=== PATIENT | female | born 1995 | race Native Hawaiian/Other Pacific Islander ===

== ENCOUNTER 2017-06-10 23:16 | Emergency (ER) | payer OTHER ==
[~2017-06-10] VITALS: Ht 149.9 cm; Wt 76.2 kg
== END 2017-06-11 01:13 | disposition home or self-care (01) ==
LOC: ED 23:16
DX: M79.671 Pain in right foot (principal); S91.331A Puncture wound without foreign body, right foot, initial encounter; W45.0XXA Nail entering through skin, initial encounter; Y92.098 Other place in other non-institutional residence as the place of occurrence of the external cause
CPT/HCPCS: 90471; 90715; 99283

== ENCOUNTER 2017-12-28 11:39 | Emergency (ER) | payer OTHER ==
[~2017-12-28] VITALS: Ht 149.9 cm; Wt 77.1 kg
[2017-12-28 11:56] VITALS: TEMP 97.7
[2017-12-28 12:34] LABS: PLATELET COUNT 507 K/uL (152-353)
[2017-12-28 12:42] LABS: POTASSIUM 4.6 mmol/L (3.6-5.2)
[2017-12-28 15:17] VITALS: BP 117/72
== END 2017-12-28 15:15 | disposition home or self-care (01) ==
LOC: ED 11:39
DX: K80.20 Calculus of gallbladder without cholecystitis without obstruction (principal)
CPT/HCPCS: 36415; 80053; 81000; 85027; 96374; 99284; J2405

== ENCOUNTER 2017-12-31 23:11 | Emergency (ER) | payer OTHER ==
[~2017-12-31] VITALS: Ht 149.9 cm; Wt 77.1 kg
[2017-12-31] MEDS ORDERED: KETO10TA34 PO (23:21)
[2018-01-01 00:40] VITALS: BP 134/80; TEMP 98
== END 2018-01-01 00:40 | disposition home or self-care (01) ==
LOC: ED 23:11
DX: K80.20 Calculus of gallbladder without cholecystitis without obstruction (principal)
CPT/HCPCS: 99282

== ENCOUNTER 2018-04-09 21:37 | Emergency (ER) | payer OTHER ==
[~2018-04-09] VITALS: Ht 149.9 cm; Wt 77.1 kg
[~2018-04-09 21:37] MED LIST: KETO10TA34 PO
[2018-04-09 23:09] VITALS: BP 133/80; TEMP 98.6
== END 2018-04-09 23:10 | disposition home or self-care (01) ==
LOC: ED 21:37
DX: M25.552 Pain in left hip (principal); W07.XXXA Fall from chair, initial encounter; Y92.89 Other specified places as the place of occurrence of the external cause
CPT/HCPCS: 99283

== ENCOUNTER 2018-09-05 13:09 | Outpatient (CLI) | payer OTHER | END 2018-09-05 20:14 | disposition home or self-care (01) | LOC: CT 13:09 | DX: R20.2 Paresthesia of skin (principal) ==

== ENCOUNTER 2018-10-11 20:36 | Emergency (ER) | payer OTHER ==
[~2018-10-11] VITALS: Ht 149.9 cm; Wt 81.6 kg
[2018-10-11 23:06] VITALS: BP 122/68; TEMP 98.9
== END 2018-10-11 23:07 | disposition home or self-care (01) ==
LOC: ED 20:36
DX: S43.491A Other sprain of right shoulder joint, initial encounter (principal); X50.0XXA Overexertion from strenuous movement or load, initial encounter; Y92.89 Other specified places as the place of occurrence of the external cause
CPT/HCPCS: 96372; 99282; 99283; J1885

== ENCOUNTER 2018-12-05 11:31 | Outpatient (CLI) | payer OTHER ==
[2018-12-05 12:28] LABS: PLATELET COUNT 452 K/uL (152-353)
== END 2018-12-05 19:39 | disposition home or self-care (01) ==
LOC: LABW 11:31
PROVIDERS: Internal Medicine Hematology & Oncology
DX: D72.829 Elevated white blood cell count, unspecified (principal)
CPT/HCPCS: 36415; 80074; 81206; 81207; 81270; 83615; 85027

== ENCOUNTER 2019-12-07 11:04 | Outpatient (CLI) | payer OTHER ==
[2019-12-07 11:34] LABS: PLATELET COUNT 417 K/uL (152-353)
== END 2019-12-07 19:27 | disposition home or self-care (01) ==
LOC: LABW 11:04
PROVIDERS: Physician Assistant Medical
DX: Z00.00 Encounter for general adult medical examination without abnormal findings (principal)
CPT/HCPCS: 36415; 80053; 80061; 84443; 85027

== ENCOUNTER 2020-08-06 15:49 | Emergency (ER) | payer OTHER ==
[~2020-08-06] VITALS: Ht 149.9 cm; Wt 85.3 kg
[2020-08-06 16:00] VITALS: TEMP 99.1
[2020-08-06 18:20] VITALS: BP 121/68
== END 2020-08-06 18:20 | disposition home or self-care (01) ==
LOC: ED 15:49
DX: S40.012A Contusion of left shoulder, initial encounter (principal); S46.812A Strain of other muscles, fascia and tendons at shoulder and upper arm level, left arm, initial encounter; V59.40XA Driver of pick-up truck or van injured in collision with unspecified motor vehicles in traffic accident, initial encounter; Y92.481 Parking lot as the place of occurrence of the external cause
CPT/HCPCS: 99283

== ENCOUNTER 2020-10-07 20:56 | Outpatient (CLI) | payer OTHER ==
[2020-10-07 21:16] LABS: PLATELET COUNT 417 K/uL (152-353)
[2020-10-07 21:27] LABS: POTASSIUM 3.7 mmol/L (3.6-5.2)
== END 2020-10-07 22:10 | disposition home or self-care (01) ==
LOC: LAB 20:56
PROVIDERS: ATTEND Internal Medicine Hematology & Oncology
DX: D72.829 Elevated white blood cell count, unspecified (principal)
CPT/HCPCS: 36415; 80053; 85027

== ENCOUNTER 2020-12-23 22:07 | Emergency (ER) | payer OTHER ==
[~2020-12-23] VITALS: Ht 149.9 cm; Wt 85.3 kg
[2020-12-23 23:00] VITALS: BP 122/88; TEMP 98.9
== END 2020-12-23 23:00 | disposition home or self-care (01) ==
LOC: ED 22:07
PROC: 0HQKXZZ Repair Right Lower Leg Skin, External Approach (ICD-10-PCS; principal; 2020-12-23)
DX: T81.31XA Disruption of external operation (surgical) wound, not elsewhere classified, initial encounter (principal); W22.8XXA Striking against or struck by other objects, initial encounter; Y92.89 Other specified places as the place of occurrence of the external cause
CPT/HCPCS: 99283

== ENCOUNTER 2021-01-04 08:30 | Emergency (ER) | payer OTHER ==
[~2021-01-04] VITALS: Ht 149.9 cm; Wt 85.3 kg
[2021-01-04 08:35] VITALS: BP 123/89; TEMP 98
== END 2021-01-04 09:10 | disposition home or self-care (01) ==
LOC: ED 08:30
DX: Z48.02 Encounter for removal of sutures (principal)

== ENCOUNTER 2021-03-09 08:51 | Outpatient (CLI) | payer OTHER ==
[2021-03-09 09:16] LABS: PLATELET COUNT 393 K/uL (152-353)
[2021-03-09 09:37] LABS: POTASSIUM 4.5 mmol/L (3.6-5.2)
== END 2021-03-09 21:18 | disposition home or self-care (01) ==
LOC: LABW 08:51
PROVIDERS: ATTEND Nurse Practitioner Family
DX: J45.909 Unspecified asthma, uncomplicated (principal); E55.9 Vitamin D deficiency, unspecified; R63.5 Abnormal weight gain; K21.9 Gastro-esophageal reflux disease without esophagitis; R63.1 Polydipsia; R53.82 Chronic fatigue, unspecified
CPT/HCPCS: 36415; 80053; 80061; 82306; 82607; 82746; 83036; 84439; 84443; 84481; 85027

== ENCOUNTER 2021-05-13 19:21 | Emergency (ER) | payer OTHER ==
[~2021-05-13] VITALS: Ht 149.9 cm; Wt 83.6 kg
[2021-05-13 20:45] LABS: PLATELET COUNT 388 K/uL (152-353)
[2021-05-13 20:58] LABS: POTASSIUM 3.9 mmol/L (3.6-5.2)
[2021-05-13 21:03] LABS: PARTIAL THROMBOPLASTIN TIME 23.7 SECONDS (24.5-33.6)
[2021-05-13 22:00] VITALS: BP 115/69; TEMP 98.4
== END 2021-05-13 22:00 | disposition home or self-care (01) ==
LOC: ED 19:21
PROVIDERS: Hospitalist
PROC: 2W3LX1Z Immobilization of Right Lower Extremity using Splint (ICD-10-PCS; principal; 2021-05-13)
DX: M25.561 Pain in right knee (principal)
CPT/HCPCS: 36415; 80048; 85027; 85379; 85610; 85730; 99283